=== PATIENT | male | born 1985 | race Caucasian/White ===

== ENCOUNTER 2018-08-16 16:59 | Emergency (ER) | payer OTHER ==
[~2018-08-16] VITALS: Ht 180.3 cm; Wt 79.4 kg
[2018-08-16] MEDS ORDERED: IBUPROFEN600 MG PO (19:26)
[2018-09-05] MEDS ORDERED: NATURE'S BLEND100 M2 PO (11:07)
[2018-09-05] MEDS ORDERED: THERA TABLET400 MCG PO (11:07)
[2018-09-05] MEDS ORDERED: NATURE'S BLEND F1 MG PO (11:07)
[2018-09-05] MEDS ORDERED: ATARAX,VISTARIL50 MG PO (11:07)
[2018-09-05] MEDS ORDERED: NICODERM CQ1 EAC1 TD (11:11)
== END 2018-08-16 19:45 | disposition home or self-care (01) ==
LOC: ED 16:59
DX: S86.912A Strain of unspecified muscle(s) and tendon(s) at lower leg level, left leg, initial encounter (principal); W11.XXXA Fall on and from ladder, initial encounter; Y93.89 Activity, other specified; Y92.89 Other specified places as the place of occurrence of the external cause; Y99.8 Other external cause status